=== PATIENT | female | born 1940 | race Caucasian/White ===

== ENCOUNTER → 2016-10-10 | Outpatient (CLI) | payer MEDICARE ==
--- NOTE | 2016-10-11 13:21 | MM ---
Reason for exam: screening (asymptomatic). Last mammogram was performed 1 year and 8 months ago. History: Patient is postmenopausal. Benign stereotactic core biopsy of the left breast, July 27, 2002. Core biopsy of the left breast. Excisional biopsy of the right breast. Took estrogen for 14 years. Physical Findings: A clinical breast exam by your physician is recommended on an annual basis and results should be correlated with mammographic findings. MG 3D Screening Mammo W/Cad Bilateral CC and MLO view(s) were taken. Prior study comparison: February 10, 2015, bilateral MG screening mammo w CAD. February 09, 2014, bilateral MG screening mammo w CAD. There are scattered fibroglandular densities. Previous mammotome biopsy in the left breast. No significant changes when compared with prior studies. ASSESSMENT: Benign, BI-RAD 2 RECOMMENDATION: Routine screening mammogram of both breasts in 1 year.
== END | disposition home or self-care (01) ==
LOC: RADMAMWWP 07:59
PROVIDERS: ATTEND Internal Medicine
DX: Z12.31 Encounter for screening mammogram for malignant neoplasm of breast (principal)
CPT/HCPCS: 77063; G0202

== ENCOUNTER → 2018-02-13 | Outpatient (CLI) | payer MEDICARE ==
--- NOTE | 2018-02-13 09:39 | XR ---
EXAM TYPE: LUMBAR SPINE X RAY SERIES COMPARISON: NONE HISTORY: Pain TECHNIQUE: 4 views are submitted. FINDINGS: Alignment is anatomic. The pedicles are intact. The transverse processes are intact. Curvature of the spine noted with grade 2 anterolisthesis L4 on L5 and multilevel severe degenerative disc diseas e and facet IMPRESSION: 1. Multilevel severe degenerative disc disease, facet arthropathy and grade 2 anterolisthesis of L4 o n L5.
== END | disposition home or self-care (01) ==
LOC: RADXRYALE 08:34
PROVIDERS: ATTEND Internal Medicine
DX: M43.16 Spondylolisthesis, lumbar region (principal); M51.36 Other intervertebral disc degeneration, lumbar region; M46.96 Unspecified inflammatory spondylopathy, lumbar region
CPT/HCPCS: 72110

== ENCOUNTER → 2018-12-08 | Outpatient (CLI) | payer MEDICARE ==
--- NOTE | 2018-12-09 14:33 | MM ---
Reason for exam: screening (asymptomatic). Last mammogram was performed 2 years and 2 months ago. History: Patient is postmenopausal. Benign stereotactic core biopsy of the left breast, July 27, 2002. Core biopsy of the left breast. Excisional biopsy of the right breast. Took estrogen for 14 years. Physical Findings: A clinical breast exam by your physician is recommended on an annual basis and results should be correlated with mammographic findings. MG 3D Screening Mammo W/Cad Bilateral CC and MLO view(s) were taken. Prior study comparison: October 10, 2016, bilateral MG 3d screening mammo w/cad. February 10, 2015, bilateral MG screening mammo w CAD. There are scattered fibroglandular densities. There are benign-appearing round calcifications in the left breast. Previous mammotome biopsy in the left breast. No discrete abnormality. ASSESSMENT: Benign, BI-RAD 2 RECOMMENDATION: Routine screening mammogram of both breasts in 1 year.
== END | disposition home or self-care (01) ==
LOC: RADMAMWWP 15:16
PROVIDERS: ATTEND Internal Medicine
DX: Z12.31 Encounter for screening mammogram for malignant neoplasm of breast (principal)
CPT/HCPCS: 77063; 77067

== ENCOUNTER → 2019-10-12 | Outpatient (CLI) | payer MEDICARE ==
--- NOTE | 2019-10-12 15:41 | XR ---
EXAM TYPE: LUMBAR SPINE X RAY SERIES COMPARISON: NONE HISTORY: Pain TECHNIQUE: 4 views are submitted. FINDINGS: Alignment is anatomic. The pedicles are intact. The transverse processes are intact. There is multi level severe degenerative disc disease with scoliosis. Vascular calcifications noted. There is a grad e 1\2 anterolisthesis L4 on L5. Multilevel facet arthropathy and foraminal encroachment suspected. IMPRESSION: 1. Levoscoliosis with multilevel degenerative disc disease and facet arthropathy. Grade 1\2 spondylol isthesis of L4 on L5.
== END | disposition home or self-care (01) ==
LOC: RADXRYALE 15:23
PROVIDERS: ATTEND Internal Medicine
DX: M43.16 Spondylolisthesis, lumbar region (principal); M51.36 Other intervertebral disc degeneration, lumbar region
CPT/HCPCS: 72110

== ENCOUNTER → 2020-04-19 | Outpatient (CLI) | payer MEDICARE ==
--- NOTE | 2020-04-20 15:07 | MM ---
Reason for exam: screening (asymptomatic). Last mammogram was performed 1 year and 4 months ago. History: Patient is postmenopausal. Benign stereotactic core biopsy of the left breast, July 27, 2002. Core biopsy of the left breast. Excisional biopsy of the right breast. Took estrogen for 14 years. Physical Findings: A clinical breast exam by your physician is recommended on an annual basis and results should be correlated with mammographic findings. MG 3D Screening Mammo W/Cad Bilateral CC and MLO view(s) were taken. Prior study comparison: December 08, 2018, bilateral MG 3d screening mammo w/cad. October 10, 2016, bilateral MG 3d screening mammo w/cad. There are scattered fibroglandular densities. Finding: Stable architectural distortion in the posterior position of the left breast consistent with biopsy changes. Previous mammotome biopsy in the left breast. There is no discrete abnormality. ASSESSMENT: Benign, BI-RAD 2 RECOMMENDATION: Routine screening mammogram of both breasts in 1 year.
== END | disposition home or self-care (01) ==
LOC: RADMAMWWP 12:51
PROVIDERS: ATTEND Internal Medicine
DX: Z12.31 Encounter for screening mammogram for malignant neoplasm of breast (principal)
CPT/HCPCS: 77063; 77067

== ENCOUNTER → 2021-10-04 | Outpatient (CLI) | payer MEDICARE ==
--- NOTE | 2021-10-05 17:08 | MM ---
Reason for Exam: Screening (asymptomatic). Last mammogram was performed 1 year(s) and 5 month(s) ago. Patient History: Menarche at age 12. First Full-Term at age 16. Left ovary removed at age 48. Right ovary removed at age 48. Hysterectomy at age 48. Postmenopausal. Patient used Estrogen for 14 years. Core Biopsy on the Left side. Excisional Biopsy on the Right side. 07/27/2002, Benign Stereotactic Core Biopsy on the left side. Risk Values: Lynette 5 year model risk: 1.7%. NCI Lifetime model risk: 2.3%. Prior Study Comparison: 10/10/2016 Bilateral Screening Mammogram, [facility]. 12/08/2018 Bilateral Screening Mammogram, [facility]. 04/19/2020 Bilateral Screening Mammogram, [facility]. Tissue Density: There are scattered fibroglandular densities. Findings: Analyzed By CAD. Surgical clip is within the left breast. Benign vascular calcifications present bilaterally. No significant interval changes are evident. No suspicious groups of microcalcifications, spiculated or lobular masses, architectural distortion or other secondary signs of malignancy are mammographically apparent. Overall Assessment: Benign, BI-RAD 2 Management: Screening Mammogram of both breasts in 1 year. A negative mammogram report should not preclude additional follow up of suspicious palpable abnormalities. Patient should continue monthly self breast exam. A clinical breast exam by your physician is recommended on an annual basis and results should be correlated with mammographic findings. Electronically signed and approved by: Bogdan Pillai D.O. Radiologis
== END | disposition home or self-care (01) ==
LOC: RADMAMWWP 15:56
PROVIDERS: ATTEND Internal Medicine
DX: Z12.31 Encounter for screening mammogram for malignant neoplasm of breast (principal); Z78.0 Asymptomatic menopausal state
CPT/HCPCS: 77063; 77067

== ENCOUNTER → 2021-10-18 | Outpatient (CLI) | payer MEDICARE ==
--- NOTE | 2021-10-18 17:11 | BD ---
EXAMINATION TYPE: Axial Bone Density DATE OF EXAM: 10/18/2021 COMPARISON: NONE CLINICAL HISTORY: 81 years year old Female. ICD-10 CODE: N95.8 MENOPAUSAL AND PERIMENOPAUSAL DISORDE R Height: 61 Weight: 135 FRAX RISK QUESTIONS: Alcohol (3 or more units per day): NO Family History (Parent hip fracture): NO Glucocorticoids (More than 3mos): NO History of Fracture in Adulthood: NO Secondary Osteoporosis: 1. Type 1 Diabetes: NO 2. Hyperthyroidism: NO 3. Menopause before 45: NO 4. Malnutrition: NO 5. Chronic liver disease: NO Rheumatoid Arthritis: NO Current Tobacco Use: NO RISK FACTORS HISTORY OF: Hip Fracture (Right/Left): NO Spine Fracture: NO History of Wrist Fracture: NO Surgery to Spine/Hip(right/left)/Wrist (right/left): NO Family History of Osteoporosis: NO Active: YES Diet low in dairy products/other sources of calcium: YES Postmenopausal woman: YES Take estrogen and/or progesterone medications: NO Lost more than 2 inches in height since high school: YES Frequent falls: NO Poor Health: NO Hyperparathyroidism: NO Adrenal Insufficiency: NO MEDICATIONS: Prednisone or other steroids: NO Thyroid Medications: NO Osteoporosis Medications: NO Additional Medications: CALCIUM, GLIMEPIRIDE, LISINOPRIL EXAM MEASUREMENTS: Bone mineral densitometry was performed using the [employer] System. Bone mineral density as measured about the Lumbar spine is: ----- L1-L4(G/cm2): 1.494 T Score Values are as follows: ----- L1: 3.5 ----- L2: 1.3 ----- L3: 3.3 ----- L4: 2.5 ----- L1-L4: 2.6 BASELINE STUDY Bone mineral density about the R hip (g/cm2): 0.863 Bone mineral density about the L hip (g/cm2): 0.835 T Score values are as follows: -----R Neck: -1.3 -----L Neck: -1.5 -----R Total: 0.6 -----L Total: -0.2 BASELINE STUDY FRAX%s: The graph provided illustrates a 13.6% chance for a major osteoporotic fx and a 3.5% chance f or the hips probability for fx in 10 years time. IMPRESSION: Osteopenia (T Score between -2.5 and -1). There is slightly increased risk of fracture and the patient may be considered for treatment. Re-Screen 2-5 years. NOTE: T-SCORE=SD OF THE YOUNG ADULT MEAN.
== END | disposition home or self-care (01) ==
LOC: RADBDWWP 12:37
PROVIDERS: ATTEND Internal Medicine
DX: M85.89 Other specified disorders of bone density and structure, multiple sites (principal)
CPT/HCPCS: 77080

== ENCOUNTER → 2022-11-22 | Outpatient (CLI) | payer MEDICARE ==
--- NOTE | 2022-11-24 23:18 | MM ---
Reason for Exam: Screening (asymptomatic). Last mammogram was performed 1 year(s) and 2 month(s) ago. Patient History: Menarche at age 12. First Full-Term at age 16. Left ovary removed at age 48. Right ovary removed at age 48. Hysterectomy at age 48. Postmenopausal. Patient used Estrogen for 14 years. Core Biopsy on the Left side. Excisional Biopsy on the Right side. 07/27/2002, Benign Stereotactic Core Biopsy on the left side. Risk Values: Lynette 5 year model risk: 1.6%. NCI Lifetime model risk: 2.0%. Prior Study Comparison: 12/08/2018 Bilateral Screening Mammogram, [facility]. 04/19/2020 Bilateral Screening Mammogram, [facility]. 10/04/2021 Bilateral MG 3D screening mammo w/cad, [facility]. Tissue Density: There are scattered fibroglandular densities. Findings: Analyzed By CAD. Benign bilateral vascular calcifications. Microclip left breast from prior biopsy. There is no suspicious group of microcalcifications or new suspicious mass in either breast. Overall Assessment: Negative, BI-RAD 1 Management: Screening Mammogram of both breasts in 1 year. . Patient should continue monthly self-breast exams. A clinical breast exam by your physician is recommended on an annual basis. This exam should not preclude additional follow-up of suspicious palpable abnormalities. Note on Lynette scores and lifetime risk: 1. A Lynette score greater than 3% is considered moderate risk. If this is the case, consider specialist referral to assess eligibility for a risk reducing agent. 2. If overall lifetime risk for the development of breast cancer is 20% or higher, the patient may qualify for future screening with alternating mammogram and breast MRI. Electronically signed and approved by: Liberty Cervantes M.D. Radiologist
== END | disposition home or self-care (01) ==
LOC: RADMAMWWP 13:17
PROVIDERS: ATTEND Internal Medicine
DX: Z12.31 Encounter for screening mammogram for malignant neoplasm of breast (principal); Z78.0 Asymptomatic menopausal state
CPT/HCPCS: 77063; 77067